=== PATIENT | male | born 1995 | race Caucasian/White ===

== ENCOUNTER 2020-05-20 13:35 | Outpatient (CLI) | payer OTHER ==
--- NOTE | 2020-05-20 14:19 | SLEEP CARE CONSULTATION ---
Information from patient questionnaire entered by Shanika Rehman. I have reviewed and concur with the information entered by Shanika Rehman. This document represents the service I personally performed and the decisions made by me, Derek Sandoval MD, [facility]. History of Present Illness Service Date and Time: 05/20/2020 2935 Reason for Visit: New patient Chief Complaint: reports: Snoring, Observed pauses in breathing, Frequent awakenings at night Duration of Symptoms: 1 year Usual bedtime: 5828-1464 Time it takes to fall asleep: 30-40 minutes Snores at night: Yes Observed to quit breathing while asleep: Yes Sleeps alone due to snoring: No Number of times waking at night: 3-5 Reasons for waking at night: reports: Gasping for air, Other (other times not sure) Toss, Turn, or Twitch while sleeping: Yes Recalls having dreams: Yes Usually gets out of bed at: [id number] Feels refreshed in the morning: No Morning headache: No Sleepy or fatigued during the day: Yes Ever fallen asleep while driving: No Takes day naps: No Dreams during day naps: No Prior sleep studies: No Additional HPI information: I had the pleasure of seeing Mr. Livingston today regarding the possibility of him having a sleep disorder. As you know, he is a 24 year old gentleman who complains of loud snore and witnessed apnea. He did not use to snore prior to gaining 50 lbs over the past 2 years. He now wakes up 3 5 times during the night. He feels sleepy during the day. His [place] Sleepiness Scale score is 10. He has extensive family history of obstructive sleep apnea-hypopnea. Subjective Initial [place] Sleepiness Scale score: 10 Social History The patient's occupation is an [employer]. Patient is Single and lives in [place]. Have you smoked in the past 12 months: No Alcohol use: No Caffeine use: Yes Caffeine amount and frequency: 1-2/day Family History Family history of sleep disordered breathing: Yes Family Hx Sleep Apnea: Father: Snoring (aunts/uncles), Grandparent: Snoring, Other: Snoring Allergies and Home Medications Drug allergies reviewed: Yes Home medication list reviewed: Yes Review of Systems Weight gain over past 5 years: 50 Cardiovascular: denies: high blood pressure, palpitations, chest pain, irregular heart rate or pulse, leg or foot swelling, have to sleep sitting up, other Respiratory: denies: shortness of breath, wheeze, sputum production, chronic cough, other Gastrointestinal: denies: heartburn, difficulty swallowing, nausea, vomitting, diarrhea, abdominal pain, other Urinary: denies: incontinence, frequency, urgency, impotence, other Neurological: reports: headaches Ear/Nose/Throat: reports: dry mouth/throat, wisdom teeth removed Musculoskeletal: denies: joint pain, neck pain, back pain, joint swelling, muscle pain or cramping, mobility problems, other Immunologic: reports: sneezing Physical Exam Vital signs obtained and entered by: Detailed physical exam was not performed to comply with the COVID-19 precau Height: 5 ft 10 in Weight: 230 lb Body Mass Index: 33.0 BMI Classification: Obese Impression and Plan IMPRESSION: 1. Obstructive Sleep Apnea-Hypopnea Syndrome, as suggested by history of loud and irregular snoring, observed cessation of breath while asleep, frequent awakenings during the night, nocturnal choking, unrefreshed sleep, and daytime hypersomnolence. Narrow oropharynx and obesity are common predisposing factors for obstructive sleep apnea-hypopnea syndrome. Pathophysiology of sleep- disordered breathing was discussed. I recommend proceeding to polysomnography to confirm the diagnosis and to assess severity. If he has significant sleep disordered breathing, a manual CPAP titration study will also be performed to find the optimal treatment pressure. I informed the patient of what the sleep studies involve and after some discussion, he agreed to proceed. Plan: 1. Schedule an in-laboratory polysomnography 2. Avoid long distance driving or when feeling sleepy. 3. Avoid alcohol, sedative and muscle relaxant around bedtime. 4. Attempt to lose weight. 5. Return in 1 to 2 weeks after the study to discuss results and initiate therapy. I spent 100% of the 15 minute visit [id number] with the patient with greater than 50% of this was spent time counseling the patient and coordination of care.
== END 2020-05-20 13:36 | disposition home or self-care (01) ==
LOC: SC 13:35
PROVIDERS: ATTEND Internal Medicine Pulmonary Disease
DX: R06.83 Snoring (principal); R06.81 Apnea, not elsewhere classified; G47.10 Hypersomnia, unspecified; G47.8 Other sleep disorders; E66.9 Obesity, unspecified; Z68.33 Body mass index [BMI] 33.0-33.9, adult
CPT/HCPCS: 99203; 99212

== ENCOUNTER 2020-06-10 16:44 | Outpatient (CLI) | payer OTHER ==
--- NOTE | 2020-06-10 17:19 | SLEEP CARE CONSULTATION ---
Information from patient questionnaire entered by Leonarda Miranda. I have reviewed and concur with the information entered by Leonarda Miranda. This document represents the service I personally performed and the decisions made by , Zaina Dee ARNP. History of Present Illness Service Date and Time: 06/10/20201643 Initial [place] Sleepiness Scale score: 10 (in 2020) Current [place] Sleepiness Scale score: 8 Additional HPI information: JULIETA ARTIS returns for follow up and results of the recently performed polysomnography. I explained the pathophysiology behind obstructive sleep apnea. We then spent quite a bit of time discussing different treatment options. For mild obstructive sleep apnea, surgery and oral appliance are alternatives to nasal CPAP therapy but in moderate or severe cases, nasal CPAP is the most effective and reliable treatment. Because apnea is primarily in supine position, then positional management therapy could be effective. Methods discussed such as positioning with pillows, using a T-shirt with tennis balls in the back, and shown commercial products that have a pillow format on back to prevent supine sleep. I reviewed the impact of weight changes on sleep apnea and strongly recommended losing weight. After some discussion, the patient opted to go with positional management therapy. [facility] patient education PAP tips and Non Pap treatment pamphlets reviewed and given to patient. Patient does not drink alcohol. Patient was cautioned about risks of drowsy driving until sleepiness symptoms resolve. Patient denies drowsy driving. Sleep Study - Results Type of Sleep Study: Polysomnography Prior sleep studies: No Polysomnography/Home Sleep Study results: IMPRESSION: The quality of the study is good. The patient had normal sleep efficiency. The sleep architecture was abnormal for sleep fragmentation and reduced amount of time spent in REM sleep. Respiratory monitoring showed moderate obstructive sleep apnea-hypopnea (AHI = 22.3) associated with fr equent arousals, oxyhemoglobin desaturation and mild hypoxia (rehan oxygen saturation of 87%). The respiratory events occurred almost exclusively during supine sleep (supine AHI = 24.3; non-supine = 3.16). Snore was moderate in intensity. There was no significant periodic leg movement of sleep. Cardiac rhythm was normal sinus rhythm without significant arrhythmia. No abnormal behavior (parasomnia) observed during the night except for possible bruxism. CONCLUSIONS and RECOMMENDATIONS: 1. The patient has moderate obstructive sleep apnea-hypopnea. ICD-10 G47.33. Positive airway pressure therapy is indicated. Other types of therapy such as upper airway surgery and oral appliance may be considered depending of clinical findings. Because the respiratory events occurred almost exclusively during supine sleep, positioning therapy should be effective as well. A follow up manual CPAP/bi-level titration study is recommended to find the optimal treatment pressure if positive airway pressure therapy is going to be utilized. With BMI of 33.0 Kg/M2, weight loss is also recommended. Physical Exam Heart Rate: 75 O2 Saturation: 98 Height: 5 ft 10 in Weight: 245 lb Body Mass Index: 35.2 BMI Classification: Obese Impression and Plan 1. Obstructive Sleep Apnea-Hypopnea Syndrome, moderate, with lowest oxygen saturation of 87%. Obviously this is the cause of the patients symptoms of unrefreshed sleep, and excessive daytime sleepiness. Positive pressure therapy could reduce snoring and increase risk of developing cardiac disease, cerebrovascular disease (stroke) and diabetes. Since patients apnea is primarily in supine position, patient opted to try positional therapy. He is also advised to lose weight as this will reduce snoring and apnea. An oral appliance can also be used for snoring but often is not covered by insurance. Follow up is scheduled for one month to check effectiveness and if further evaluation indicated such a repeat study in supine position only to see if additional treatment indicated. * Positional management therapy. * Attempt to lose weight. * The patient is again cautioned about driving until sleepiness completely resolves. * Return in one month to assess effectiveness of therapy and patient response. Visit Type: In Office Time Spent with Patient (minutes): 23 Provider Statement: I spent 100% of the Face to Face Visit with the patient with greater than 50% spent counseling the patient and coordination of care.
== END 2020-06-10 16:45 | disposition home or self-care (01) ==
LOC: SC 16:44
PROVIDERS: ATTEND Nurse Practitioner Family
DX: G47.33 Obstructive sleep apnea (adult) (pediatric) (principal); E66.9 Obesity, unspecified; Z68.35 Body mass index [BMI] 35.0-35.9, adult
CPT/HCPCS: 99212; 99213

== ENCOUNTER 2020-07-09 08:23 | Outpatient (CLI) | payer OTHER ==
--- NOTE | 2020-07-09 09:24 | SLEEP CARE CONSULTATION ---
Information from patient questionnaire entered by Merary Cordero. I have reviewed and concur with the information entered by Merary Cordero. This document represents the service I personally performed and the decisions made by me, Zaina Dee ARNP. History of Present Illness Service Date and Time: 07/09/2020822 Previous diagnosis: Moderate, Obstructive Sleep Apnea-Hypopnea Syndrome AHI: 22.3 (in 2019) Reason for follow up: one month (positional therapy) Prior sleep studies: Yes Year and Where: 2019 - [facility] Type of Sleep Study: Polysomnography HPI additional information: JULIETA ARTIS was diagnosed to have moderate, AHI 22.3, obstructive sleep apnea- hypopnea syndrome and returned today for positional management therapy one month follow-up. He states the first week or so sleeping on his side was going well and he did feel that he was sleeping better and feeling more rested. He did purchase a belted pillow to stay on his side and using pillows. His snoring has been less and he sleeps easier on his side per his girlfriend. He states he the waking up choking is still happening. He also gets feelings of a burning in throat (this he has had before) about 1 time a week for which he has to stack up pillows and lay on back to get the sensation to resolve. He states it is hard to get sensation to resolve when on side. He feels over the month it is getting harder to stay on his back and he is even moving the belted sleeping positional device without realizing it until his girlfriend wakes him up because he is snoring. Sleep Study - Results Prior sleep studies: No Subjective Initial [place] Sleepiness Scale score: 10 (in 2019) Current [place] Sleepiness Scale score: 11 Allergies and Home Medications Drug allergies reviewed: Yes (NKDA) Home medication list reviewed: Yes (no changes, no meds) Review of Systems Review of systems same as previous: Yes (no changes) Physical Exam Heart Rate: 72 O2 Saturation: 98 Height: 5 ft 10 in Weight: 246 lb Body Mass Index: 35.3 BMI Classification: Obese Impression and Plan 1. Obstructive Sleep Apnea-Hypopnea Syndrome, moderate, with lowest oxygen saturation of 87%. Obviously this is the cause of the patients symptoms of unrefreshed sleep, and excessive daytime sleepiness. Positive pressure therapy could benefit his overall health. Patient did try positional management therapy but over the month found it harder and harder to stay on his back despite using positional therapy pillow. He is still having some gasping for air and some occasional burning sensations that does not resolve well on his side. He would like to try CPAP therapy to see if he likes it better. The patient will be started on nasal autoCPAP therapy with pressure set at 4-15 cmH2O. Compliance guidelines also reviewed. A copy of compliance guidelines will be given for reference at check out. Because the apnea is more severe supine, I instructed to avoid sleeping supine using pillow positioning/positional therapy as discussed before until able to start CPAP use. * Nasal auto CPAP therapy, pressure at 4-15 cm H2O. * Attempt to lose weight. * Avoid alcohol consumption near bedtime. * Avoid supine sleep until using CPAP. * The patient is again cautioned about driving until sleepiness completely resol ves. * Return one month after CPAP obtained. I will assess response to therapy and compliance at that time. Visit Type: In Office Time Spent with Patient (minutes): 17 Provider Statement: I spent 100% of the Face to Face Visit with the patient with greater than 50% spent counseling the patient and coordination of care.
== END 2020-07-09 08:24 | disposition home or self-care (01) ==
LOC: SC 08:23
PROVIDERS: ATTEND Nurse Practitioner Family
DX: G47.33 Obstructive sleep apnea (adult) (pediatric) (principal); E66.9 Obesity, unspecified; Z68.35 Body mass index [BMI] 35.0-35.9, adult
CPT/HCPCS: 99212; 99213

== ENCOUNTER 2020-10-17 16:41 | Outpatient (CLI) | payer OTHER ==
--- NOTE | 2020-10-17 17:05 | SLEEP CARE CONSULTATION ---
Information from patient questionnaire entered by Leonarda Miranda. I have reviewed and concur with the information entered by Leonarda Miranda. This document represents the service I personally performed and the decisions made by me, Zaina Dee ARNP. History of Present Illness Service Date and Time: 10/17/2020 1640 Previous diagnosis: Moderate, Obstructive Sleep Apnea-Hypopnea Syndrome AHI: 22.3 (in 2019) Reason for follow up: first compliance (07/23) Equipment type: CPAP Equipment obtained from: [employer] (got initial shipment, had to replace mask twice) Mask style: Full face Backup mask available: Yes (other mask) Prior sleep studies: No Year and Where: 2019 - [facility] HPI additional information: JULIETA ARTIS was diagnosed to have moderate, AHI 22.3, obstructive sleep apnea- hypopnea syndrome and returns via Telehealth visit today for CPAP therapy first compliance follow-up. Sleep Study - Results Prior sleep studies: No [facility] Compliance Data - Data Reviewed with Patient Average duration of nightly device use: 17 min Compliance rate %: 0 Current pressure setting (cmH2O): 4-15 Humidity settin Heated hose settin Average residual AHI: 26.4 Average large leak: 0 sec Subjective Missed days of use due to: reports: mask issues, travel Patient concerns: reports: aerophagia (did get a little bit), mask discomfort (did not like nasal cushion mask), air blowing in eyes (only with the small mask; medium is better), other (he wasn't able to sleep with the maskon). denies: mask leak noise, condensation in mask/hose, nasal congestion, dry mouth, nose, throat, epistaxis Observed to snore while using device: No Current pressure setting perceived as: too high (a little high, having difficulty exhaling in the mask) On therapy, patient: reports: other (he has not had enough time on machine to obtain benefit from treatment). denies: sleeping better, awakening more refreshed, being more awake and alert during the day, more rested overall, drowsiness while driving Initial [place] Sleepiness Scale score: 10 (in 2019) Current [place] Sleepiness Scale score: 10 Allergies and Home Medications Drug allergies reviewed: Yes (NKDA) Home medication list reviewed: Yes (no changes) Review of Systems Review of systems same as previous: Yes (no changes) Physical Exam Vital signs obtained and entered by: Telehealth visit to reduce exposure during Covid pandemic Height: 5 ft 10 in Impression and Plan 1. Obstructive Sleep Apnea-Hypopnea Syndrome, moderate, with poor treatment compliance and poor apnea control. On CPAP therapy, the patient has better sleep quality and is more rested overall. Patient has had poor compliance due to travel where he forgot the tubing and not being able to fall asleep with the mask on. He tried a nasal pillows mask but the caused him to sleep with his mouth open and leaked into his eyes. He is now using a full face mask that eliminated leaking in eyes with a medium sized mask. He states he can tolerate it on his face but is just not able to fall asleep with it on. He also experiences itching of nose and face after putting on the mask. He was advised to wear the full face mask while reading or watching TV to help desensitize to the feeling of pressure blowing in his mouth and nose daily. He is to start at 30 minutes and then increase time over a few days. He is to try to put on mask before laying down to sleep each night to try to be able to fall asleep with it on. He voiced understanding and agreement to plan. I am adjusting his pressure to 4-8 cm H2O to reduce pressure amount to help him get used to the pressure feeling of the mask. Patient's apnea severity and rationale for treatment to reduce apnea, improve sleep quality and reduce cardiovascular and ce rebrovascular events was reviewed. * Changeauto CPAP pressure to 4-8 cmH2O * Notify me if snoring with mask or feeling that the pressure is too much or too little * Attempt to lose weight * Call this office if any problems using CPAP * Return for follow up in 1-2 months, or sooner if concerns arise Counseling Topics: Spare mask Visit Type: Telehealth Video Video Type: Love Patient Location: Home Location of Provider: Office Time Spent with Patient (minutes): 18 Provider Statement: I spent 100% of the Telehealth Video Call with the patient with greater than 50% spent counseling the patient and coordination of care.
== END 2020-10-17 16:42 | disposition home or self-care (01) ==
LOC: SC 16:41
PROVIDERS: ATTEND Nurse Practitioner Family
DX: G47.33 Obstructive sleep apnea (adult) (pediatric) (principal); Z91.19 Patient's noncompliance with other medical treatment and regimen

== ENCOUNTER 2020-12-17 14:08 | Outpatient (CLI) | payer OTHER ==
--- NOTE | 2020-12-17 14:45 | SLEEP CARE CONSULTATION ---
Information from patient questionnaire entered by Leonarda Miranda. I have reviewed and concur with the information entered by Leonarda Miranda. This document represents the service I personally performed and the decisions made by me, Zaina Dee ARNP. History of Present Illness Service Date and Time: 12/17/2020 1408 Previous diagnosis: Moderate, Obstructive Sleep Apnea-Hypopnea Syndrome AHI: 22.3 (in 2019) Reason for follow up: one month (1-2 month followup - pressure change) Equipment type: CPAP Equipment obtained from: [employer] (got initial shipment, had to replace mask twice) Mask style: Full face (dreamwear) Mask brand: Respironics Backup mask available: No (will keep old mask when replaced) Last cushion change: 1 month Prior sleep studies: No Year and Where: 2019 - [facility] HPI additional information: JULIETA ARTIS was diagnosed to have moderate, AHI 22.3, obstructive sleep apnea- hypopnea syndrome and returned today for CPAP therapy 2 month pressure change follow-up. CPAP Compliance Data Compliance data discussion: He is still having a hard time sleeping with the mask on. He is still snoring some when using the CPAP mask. Subjective Patient concerns: reports: air blowing in eyes (just need to adjust the mask for better fit), dry mouth, nose, throat (dry mouth), other (snore while using device). denies: aerophagia, mask discomfort, mask leak noise, condensation in mask/hose, nasal congestion, epistaxis Observed to snore while using device: Yes (every time he uses it) Current pressure setting perceived as: comfortable On therapy, patient: reports: other (He doesn't feel that he is sleeping better with the CPAP mask on; he feels he sleeps better without it). denies: sleeping better, awakening more refreshed, being more awake and alert during the day, more rested overall Initial [place] Sleepiness Scale score: 10 (in 2019) Current [place] Sleepiness Scale score: 6 Allergies and Home Medications Home medication list reviewed: Yes (no changes) Review of Systems Review of systems same as previous: Yes (no changes) Physical Exam Heart Rate: 74 O2 Saturation: 96 Height: 5 ft 10 in Weight: 253 lb (with coat/shoes) Body Mass Index: 36.3 BMI Classification: Obese Impression and Plan 1. Obstructive Sleep Apnea-Hypopnea Syndrome, moderate, with unknown treatment compliance and unknown apnea control. On CPAP therapy, the patient states he cannot fall asleep with the mask on his face. He has always been a very light sleeper. He states when it is quiet and he is laying in he dark he focuses on t he mask on his face and is not able to go to sleep. He will just take it off and then is able to go to sleep. He states he tries to sleep on his side and has a belted wedge that is helping him stay off his back. He still wants to see if he can tolerate using the CPAP therapy. He has also been snoring when using the mask. I need his compliance information prior to any pressure changes. I will have him bring in he memory chip for the compliance information when he comes back to [facility] on Tuesday. He was advised to use positional therapy if unable to tolerate the mask since his sleep study showed his non-supine AHI as 3.16. He states he sleep much better on his side without the CPAP. Patient's apnea severity and rationale for treatment to reduce apnea, improve sleep quality and reduce cardiovascular and cerebrovascular events was reviewed. * Continue autoCPAP pressure at 4-8 cmH2O * Use positional therapy when not able to tolerate the CPAP mask. * Notify me if snoring with mask or feeling that the pressure is too much or too little * Attempt to lose weight * Call this office if any problems using CPAP * Return for follow up in 1-2 months, or sooner if concerns arise Counseling Topics: Spare mask Visit Type: In Office Time Spent with Patient (minutes): 25 Provider Statement: I spent 100% of the Face to Face Visit with the patient with greater than 50% spent counseling the patient and coordination of care.
== END 2020-12-17 14:09 | disposition home or self-care (01) ==
LOC: SC 14:08
PROVIDERS: ATTEND Nurse Practitioner Family
DX: G47.33 Obstructive sleep apnea (adult) (pediatric) (principal); E66.9 Obesity, unspecified; Z68.36 Body mass index [BMI] 36.0-36.9, adult
CPT/HCPCS: 99212; 99213

== ENCOUNTER 2021-02-25 15:47 | Outpatient (CLI) | payer OTHER ==
--- NOTE | 2021-02-25 16:19 | SLEEP CARE CONSULTATION ---
Information from patient questionnaire entered by Leonarda Miranda. I have reviewed and concur with the information entered by Leonarda Miranda. This document represents the service I personally performed and the decisions made by me, Zaina Dee ARNP. History of Present Illness Service Date and Time: 02/25/2021 1547 Previous diagnosis: Moderate, Obstructive Sleep Apnea-Hypopnea Syndrome AHI: 22.3 (in 2019) Equipment type: CPAP Equipment obtained from: [facility] (getting supplies as needed) Mask style: Full face (dreamwear) Backup mask available: No (will keep old mask once replaced) Prior sleep studies: No Year and Where: 2019 - [facility] HPI additional information: JULIETA ARTIS was diagnosed to have moderate, AHI 22.3, obstructive sleep apnea- hypopnea syndrome and returned today for CPAP therapy two month follow-up. CPAP Compliance Data - Data Reviewed with Patient Average duration of nightly device use: 51 min 37 sec Compliance rate %: 0 Current pressure setting (cmH2O): 4-8 Humidity settin Heated hose settin Average residual AHI: 16.3 Average large leak: 9 sec Subjective Missed days of use due to: reports: travel, other (SHIP) Patient concerns: reports: mask discomfort (facial), air blowing in eyes, dry mouth, nose, throat Observed to snore while using device: No Current pressure setting perceived as: comfortable On therapy, patient: reports: other (not able to sleep with the CPAP, just lays there and looks at the clock all night). denies: sleeping better, awakening more refreshed, being more awake and alert during the day, more rested overall, drowsiness while driving Initial [place] Sleepiness Scale score: 10 (in 2019) Current [place] Sleepiness Scale score: 10 Allergies and Home Medications Home medication list reviewed: Yes (no new meds) Review of Systems Review of systems same as previous: Yes (no changes) Physical Exam Heart Rate: 87 O2 Saturation: 98 Height: 5 ft 10 in Weight: 250 lb Body Mass Index: 35.9 BMI Classification: Obese Impression and Plan 1. Obstructive Sleep Apnea-Hypopnea Syndrome, moderate, with poor treatment compliance and poor apnea control. On CPAP therapy, the patient does not feel he can tolerate the CPAP therapy. He has been using a pillow that keeps him on his side and he feels like he is getting better rest and feeling more rested overall by sleeping on his side. He has been using this most nights. He snores a lot less on his side according to his girlfriend who will nudge him if he is snoring on his back. He would like to stop CPAP therapy and change to positional therapy. I reviewed his sleep study and his non-supine AHI was 3.16 so positional therapy should control his sleep apnea with good results. This has been shown by him already helping him feel more rested. I will have him follow up in 6 months to recheck his response. Patient's apnea severity and rationale for treatment to reduce apnea, improve sleep quality and reduce cardiovascular and cerebrovascular events was reviewed. * Stop CPAP therapy * Start positional therapy * Attempt to lose weight * Return for follow up in 6 months, or sooner if concerns arise Counseling Topics: Sleeping position, Weight loss health impact Visit Type: In Office Time Spent with Patient (minutes): 23 Provider Statement: I spent 100% of the Face to Face Visit with the patient with greater than 50% spent counseling the patient and coordination of care.
== END 2021-02-25 15:48 | disposition home or self-care (01) ==
LOC: SC 15:47
PROVIDERS: ATTEND Nurse Practitioner Family
DX: G47.33 Obstructive sleep apnea (adult) (pediatric) (principal); E66.9 Obesity, unspecified; Z68.35 Body mass index [BMI] 35.0-35.9, adult
CPT/HCPCS: 99212; 99213

== ENCOUNTER 2021-05-28 13:26 | Outpatient (CLI) | payer OTHER ==
--- NOTE | 2021-05-28 15:37 | XRAY Report ---
PROCEDURE: Wrist 3 View RT INDICATIONS: WRIST PAIN, RIGHT TECHNIQUE: 3 views of the wrist were acquired. COMPARISON: None FINDINGS: Bones: No fractures or dislocations. No suspicious bony lesions. Soft tissues: No suspicious soft tissue calcifications. IMPRESSION: No fracture. No osseous lesion. If there are persistent symptoms or continued clinical concern for pa thology, then repeat plain film radiographs (7-10 days) or advanced imaging (CT, MR, bone scan) shoul d be considered for further evaluation. Reviewed by: Doris Taylor MD, PhD on 05/28/2021 3:35 PM PDT Approved by: Doris Taylor MD, PhD on 05/28/2021 3:35 PM PDT Station ID: [id number]
--- NOTE | 2021-05-28 15:38 | XRAY Report ---
PROCEDURE: Hand 3 View RT INDICATIONS: HAND PAIN, RIGHT TECHNIQUE: 3 views of the hand(s) acquired. COMPARISON: None FINDINGS: Bones: No fractures or dislocations. No suspicious bony lesions. Soft tissues: No suspicious soft tissue calcifications. IMPRESSION: No fracture. No osseous lesion. If there are persistent symptoms or continued clinical concern for pa thology, then repeat plain film radiographs (7-10 days) or advanced imaging (CT, MR, bone scan) shoul d be considered for further evaluation. Reviewed by: Doris Taylor MD, PhD on 05/28/2021 3:37 PM PDT Approved by: Doris Taylor MD, PhD on 05/28/2021 3:37 PM PDT Station ID: [id number]
== END 2021-05-28 23:59 | disposition home or self-care (01) ==
LOC: DI.N 13:26
PROVIDERS: ATTEND Physician Assistant
DX: M25.531 Pain in right wrist (principal); M79.641 Pain in right hand

== ENCOUNTER 2021-08-20 07:33 | Outpatient (CLI) | payer OTHER ==
--- NOTE | 2021-08-20 11:45 | SLEEP CARE CONSULTATION ---
Information from patient questionnaire entered by Shanika Rehman. I have reviewed and concur with the information entered by Shanika Rehman. This document represents the service I personally performed and the decisions made by me, Zaina Dee ARNP. History of Present Illness Service Date and Time: 08/20/2021 0733 Previous diagnosis: Moderate, Obstructive Sleep Apnea-Hypopnea Syndrome AHI: 22.3 (in 2019) Reason for follow up: six month (with positional therapy) Equipment type: CPAP Equipment obtained from: [facility] Mask style: Full face (dreamwear) Prior sleep studies: No Year and Where: 2019 - [facility] Type of Sleep Study: Polysomnography HPI additional information: JULIETA ARTIS was diagnosed to have moderate, AHI 22.3, obstructive sleep apnea- hypopnea syndrome and returned today for Positional therapy six month follow-up. Sleep Study - Results Prior sleep studies: No Year and Where: 2019 - [facility] CPAP Compliance Data Compliance data discussion: He is able to stay on his side with the positional belt he has been using every night. He felt that he had good results with positional therapy but in the past month he has been feeling more tired/fatigued during the day. He is not sure if this is due to new stress in his life. He has been fluctuating with 10 pound loss/gain for months. He is still snoring when on his side according to his significant other. She thinks his snoring has gotten worse recently, but she has not seen any pauses in breathing or choking/gasping while asleep. Subjective On therapy, patient: reports: sleeping better (until the last month), more rested overall (until the last month). denies: drowsiness while driving Initial [place] Sleepiness Scale score: 10 (in 2019) Current [place] Sleepiness Scale score: 11 Allergies and Home Medications Home medication list reviewed: Yes (no changes) Review of Systems Review of systems same as previous: Yes (no changes) Physical Exam Heart Rate: 82 O2 Saturation: 98 Height: 5 ft 10 in Weight: 258 lb Weight change since last visit: 8 lb gain, pt states his weight is fluctuating Body Mass Index: 37.0 BMI Classification: Obese Impression and Plan 1. Obstructive Sleep Apnea-Hypopnea Syndrome, moderate. Using positional therapy, the patient has better sleep quality and is more rested overall. Recently, the patient states in the last month he has been having increasing fatigue and tiredness through the day. He is not waking up feeling refreshed in the morning. His significant other has told him that his snoring is getting worse even when he is sleeping on his side. Patient is from the [place] soon and is concerned about insurance changes. Patient thinks it would be best if he restarted CPAP due to the increased sleepiness during the day and snoring on his side when using positional therapy. I concur that changing back to the CPAP could be beneficial and will write a prescription for that today. Patient last used [employer] for his [employer] company. He will evaluate if he wants to continue with them. Patient encouraged to call once he has the new device to set up a follow up one month after restarting CPAP therapy so that we can check his compliance with the new device. Patient wants to lose weight but feels due to the stress of his job and the need be this is difficult he states once he is he can concentrate on improving his health and losing weight. I encouraged him to continue to make good choices until he is able to make some lifestyle changes. Patient voiced understanding and agreement with plan. Patient's apnea severity and rationale for treatment to reduce apnea, improve sleep quality and reduce cardiovascular and cerebrovascular events was reviewed. * Nasal auto CPAP therapy, pressure at 4-10 cm H2O. * Continue to try to lose weight. * Avoid alcohol consumption near bedtime. * Continue positional therapy until he can sleep with CPAP * Return one month after CPAP obtained. I will assess response to therapy and compliance at that time. Counseling Topics: Sleeping position, Weight loss health impact Visit Type: In Office Time Spent with Patient (minutes): 29 Provider Statement: I spent 100% of the Face to Face Visit with the patient with greater than 50% spent counseling the patient and coordination of care.
== END 2021-08-20 07:34 | disposition home or self-care (01) ==
LOC: SC 07:33
PROVIDERS: ATTEND Nurse Practitioner Family
DX: G47.33 Obstructive sleep apnea (adult) (pediatric) (principal)
CPT/HCPCS: 99212; 99213